=== PATIENT | female | born 1930 | race Caucasian/White ===

== ENCOUNTER 2017-08-19 13:18 | Inpatient (IN) | payer MEDICARE, MEDICAID ==
[~2017-08-19] VITALS: Ht 157.5 cm; Wt 58.5 kg
[~2017-08-19 13:18] MED LIST: AMLO5TAB88 PO; AZIT250T PO; LORA0.5T2 PO; LOVA40TA73 PO; TRAM50TA3 PO; WARF2TAB57
[2017-08-19] MEDS ORDERED: FUROSEMIDE 40MG/4ML VIAL IV STA (14:49)
[2017-08-19] MEDS ORDERED: ASPIRIN 81MG TABLET PO STA (14:49)
[2017-08-19] MEDS ORDERED: IPRATROPIUM/ALBUTEROL 0.5-3(2.5)MG/3ML NEB HHN ONE (15:00)
[2017-08-19 15:36] LABS: BASOPHILS % 0.5 % (0.0-2.0); EOSINOPHILS % 2.7 % (0.0-5.0); HEMATOCRIT. 45.1 % (36.0-48.0); HEMOGLOBIN. 15.2 g/dL (12.0-16.0); LYMPHOCYTES % 19.7 % (20.0-50.0); MEAN CORPUSCULAR HEMOGLOBIN 31.1 pg (28.0-32.0); MEAN PLATELET VOLUME 8.8 fl (7.4-10.4); MONOCYTES % 9.9 % (2.0-8.0); NEUTROPHILS % 67.2 % (40.0-76.0); PLATELET 228 x1000/uL (130-400); RED BLOOD CELL COUNT 4.91 mill/uL (4.2-5.4); RED CELL DISTRIBUTION WIDTH 13.7 % (11.6-14.6)
[2017-08-19 15:40] LABS: CLARITY URINE CLEAR (CLEAR); COLOR URINE YELLOW (YELLOW); GLUCOSE URINE NEGATIVE (NEGATIVE); KETONES URINE NEGATIVE (NEGATIVE); LEUKOCYTE ESTERASE URINE TRACE (NEGATIVE); NITRITE URINE NEGATIVE (NEGATIVE); OCCULT BLOOD URINE TRACE (NEGATIVE); PROTEIN URINE NEGATIVE (NEGATIVE); SPECIFIC GRAVITY URINE 1.026 (1.005-1.030); UROBILINOGEN URINE 0.2 E.U./dL (0.2-1.0)
[2017-08-19 15:44] LABS: CHLORIDE 101 mEq/L (98-107)
[2017-08-19 15:45] LABS: CARBON DIOXIDE 32 mEq/L (21-32)
[2017-08-19 15:47] LABS: D-DIMER 0.51 mg/L FEU (<0.50); INR 1.7; PARTIAL THROMBOPLASTIN TIME 26.5 sec (23.4-31.0); PROTHROMBIN TIME 17.9 sec (9.4-11.6)
[2017-08-19 15:51] LABS: CREATINE KINASE 125 IU/L (26-192)
[2017-08-19 15:53] LABS: TROPONIN I < 0.02 ng/mL (0.00-0.04)
[2017-08-19] MEDS ORDERED: LEVOFLOXACIN 750MG PREMIX 150 ML IV ONE (16:00)
[2017-08-19 22:50] VITALS: BP 110/67
[2017-08-20] MEDS ORDERED: IPRATROPIUM/ALBUTEROL 0.5-3(2.5)MG/3ML NEB HHN PRN (00:15)
[2017-08-20] MEDS ORDERED: TRAMADOL 50MG TABLET PO PRN (00:15)
[2017-08-20 00:17] VITALS: BP 120/60
[2017-08-20 04:00] VITALS: BP 148/78
[2017-08-20 07:49] VITALS: BP 155/72
[2017-08-20 08:05] LABS: HEMATOCRIT 45.1 % (36.0-48.0); HEMOGLOBIN 15.6 g/dL (12.0-16.0); MEAN CORPUSCULAR HEMOGLOBIN 31.7 pg (28.0-32.0); PLATELET 221 x1000/uL (130-400); RED CELL DISTRIBUTION WIDTH 13.9 % (11.6-14.6)
[2017-08-20 08:14] LABS: CARBON DIOXIDE 32 mEq/L (21-32); CHLORIDE 98 mEq/L (98-107)
[2017-08-20] MEDS ORDERED: AMLODIPINE 5MG TABLET PO SCH (09:00)
[2017-08-20 09:18] LABS: INR 1.5
[2017-08-20] MEDS ORDERED: ATEN-42 PO (10:20)
[2017-08-20] MEDS ORDERED: MEMA10TA2 PO (10:20)
[2017-08-20] MEDS ORDERED: DIGOXIN 500MCG/2ML AMP IV NR (11:45)
[2017-08-20 12:00] VITALS: BP 122/74
[2017-08-20] MEDS: MEMANTINE HCL 10MG TABLET PO SCH ×2 (13:17→20:12)
[2017-08-20] MEDS: ATENOLOL 25MG TABLET PO SCH ×2 (13:17→20:13)
[2017-08-20] MEDS ORDERED: KCL 20MEQ/100ML PREMIX 100 ML IV NR (14:00)
[2017-08-20] MEDS ORDERED: DIGOXIN 500MCG/2ML AMP IV PRN (14:00)
[2017-08-20] MEDS: METHYLPREDNISOLONE SOD SUCC 125 MG/2 ML VIAL IV SCH ×2 (15:42→21:04)
[2017-08-20 16:45] VITALS: BP 148/60
[2017-08-20] MEDS: AZITHROMYCIN 500 MG in DEXT 5% WATER 250 ML IV SCH (17:41)
[2017-08-20] MEDS ORDERED: WARFARIN SODIUM 1MG TABLET PO SCH (18:00)
[2017-08-20] MEDS ORDERED: WARFARIN SODIUM 4MG TABLET PO NR ×2 (18:00)
[2017-08-20 20:00] VITALS: BP 138/71
[2017-08-20] MEDS: LORAZEPAM 0.5MG TABLET PO SCH (20:12)
[2017-08-21] VITALS: BP 145/71
[2017-08-21] MEDS: DILTIAZEM HCL 30MG TABLET PO SCH ×4 (00:25→17:37)
[2017-08-21 04:00] VITALS: BP 121/58
[2017-08-21] MEDS: METHYLPREDNISOLONE SOD SUCC 125 MG/2 ML VIAL IV SCH ×3 (05:08→21:21)
[2017-08-21 07:44] LABS: INR 1.4; PROTHROMBIN TIME 14.7 sec (9.4-11.6)
[2017-08-21 07:54] LABS: BASOPHILS % 0.1 % (0.0-2.0); HEMATOCRIT. 47.7 % (36.0-48.0); HEMOGLOBIN. 16.2 g/dL (12.0-16.0); LYMPHOCYTES % 14.7 % (20.0-50.0); MEAN CORPUSCULAR HEMOGLOBIN 31.2 pg (28.0-32.0); MEAN PLATELET VOLUME 9.6 fl (7.4-10.4); MONOCYTES % 1.7 % (2.0-8.0); NEUTROPHILS % 83.5 % (40.0-76.0); PLATELET 238 x1000/uL (130-400); RED BLOOD CELL COUNT 5.19 mill/uL (4.2-5.4); RED CELL DISTRIBUTION WIDTH 13.6 % (11.6-14.6)
[2017-08-21 08:00] VITALS: BP 119/59
[2017-08-21 08:07] LABS: CARBON DIOXIDE 31 mEq/L (21-32); CHLORIDE 99 mEq/L (98-107)
[2017-08-21] MEDS: MEMANTINE HCL 10MG TABLET PO SCH ×2 (09:25→21:21)
[2017-08-21 12:00] VITALS: BP 111/47
[2017-08-21 16:00] VITALS: BP 122/57
[2017-08-21] MEDS: AZITHROMYCIN 500 MG in DEXT 5% WATER 250 ML IV SCH (17:36)
[2017-08-21] MEDS ORDERED: WARFARIN SODIUM 3MG TABLET PO SCH (18:00)
[2017-08-21 20:00] VITALS: BP 117/48
[2017-08-21] MEDS: LORAZEPAM 0.5MG TABLET PO SCH (21:21)
[2017-08-22] VITALS: BP 142/61
[2017-08-22] MEDS: DILTIAZEM HCL 30MG TABLET PO SCH ×3 (00:41→11:53)
[2017-08-22 04:00] VITALS: BP 134/52
[2017-08-22] MEDS: METHYLPREDNISOLONE SOD SUCC 125 MG/2 ML VIAL IV SCH ×2 (05:01→14:07)
[2017-08-22 06:37] LABS: BASOPHILS % 0.1 % (0.0-2.0); HEMATOCRIT. 42.7 % (36.0-48.0); HEMOGLOBIN. 14.6 g/dL (12.0-16.0); LYMPHOCYTES % 8.4 % (20.0-50.0); MEAN CORPUSCULAR HEMOGLOBIN 31.2 pg (28.0-32.0); MEAN CORPUSCULAR VOLUME 91.6 fL (81.0-99.0); MEAN PLATELET VOLUME 9.7 fl (7.4-10.4); MONOCYTES % 1.7 % (2.0-8.0); NEUTROPHILS % 89.8 % (40.0-76.0); PLATELET 237 x1000/uL (130-400); RED BLOOD CELL COUNT 4.66 mill/uL (4.2-5.4); RED CELL DISTRIBUTION WIDTH 13.6 % (11.6-14.6)
[2017-08-22 08:00] VITALS: BP 131/48
[2017-08-22 08:06] LABS: INR 2.9; PROTHROMBIN TIME 30.4 sec (9.4-11.6)
[2017-08-22 08:56] LABS: CARBON DIOXIDE 28 mEq/L (21-32); CHLORIDE 98 mEq/L (98-107)
[2017-08-22] MEDS: MEMANTINE HCL 10MG TABLET PO SCH (09:35)
[2017-08-22 12:00] VITALS: BP 140/58
[2017-08-22 15:06] VITALS: BP 140/65
[2017-08-24 19:12] LABS: OVA & PARASITE EXAM Final report (.)
== END 2017-08-22 18:10 | disposition home or self-care (01) | DRG 202 ==
LOC: ER 15:54 → OBSVTOIN 16:54 → INTOOBSV 16:54 → 6WST 16:54 → EDBEDREQ 18:46 → ENRESERV 19:19
PROVIDERS: ADMIT Internal Medicine; ATTEND Internal Medicine
DX: J20.9 Acute bronchitis, unspecified (principal); I48.1 Persistent atrial fibrillation; I07.1 Rheumatic tricuspid insufficiency; I11.0 Hypertensive heart disease with heart failure; I50.9 Heart failure, unspecified; I48.92 Unspecified atrial flutter; K52.9 Noninfective gastroenteritis and colitis, unspecified; R59.1 Generalized enlarged lymph nodes; G30.9 Alzheimer's disease, unspecified; F02.80 Dementia in other diseases classified elsewhere, unspecified severity, without behavioral disturbance, psychotic disturbance, mood disturbance, and anxiety; E87.6 Hypokalemia; I35.1 Nonrheumatic aortic (valve) insufficiency; I48.2 Chronic atrial fibrillation; Z79.01 Long term (current) use of anticoagulants; Z82.49 Family history of ischemic heart disease and other diseases of the circulatory system; Z86.73 Personal history of transient ischemic attack (TIA), and cerebral infarction without residual deficits; Z90.710 Acquired absence of both cervix and uterus; Z79.899 Other long term (current) drug therapy; Z80.9 Family history of malignant neoplasm, unspecified
CPT/HCPCS: 36415; 71010; 80048; 80053; 81001; 82270; 82550; 83605; 83615; 83690; 83735; 83880; 84443; 84484; 85025; 85027; 85379; 85610; 85730; 87015; 87040; 87045; 87177; 87186; 87209; 87427; 89055; 93005; 93306; 94640; 96365; 96366; 96375; 97162; 99285; J0456; J1160; J1940; J1956; J2930; J3480; J7030; J7060; J7620

== ENCOUNTER 2019-01-04 17:43 | Inpatient (IN) | payer MEDICARE, MEDICAID ==
[~2019-01-04] VITALS: Ht 162.6 cm; Wt 61.7 kg
[~2019-01-04 17:43] MED LIST changes: -AMLO5TAB88 PO; +MEMA10TA2 PO
[2019-01-04] MEDS ORDERED: ONDANSETRON HCL 4MG/2ML INJ IV STA (18:34)
[2019-01-04] MEDS ORDERED: SODIUM CHLORIDE 0.9% 1,000 ML IV ONE (18:34)
[2019-01-04] MEDS ORDERED: MORPHINE SULFATE 4 MG/ML CPJ (NOT FOR IM USE) IV STA (18:34)
[2019-01-04 19:17] LABS: BASOPHILS % 0.4 % (0.0-2.0); EOSINOPHILS % 0.3 % (0.0-5.0); HEMATOCRIT. 39.5 % (36.0-48.0); LYMPHOCYTES % 14.9 % (20.0-50.0); MEAN CORPUSCULAR HEMOGLOBIN 31.1 pg (28.0-32.0); MEAN CORPUSCULAR VOLUME 94.1 fL (81.0-99.0); MEAN PLATELET VOLUME 8.6 fl (7.4-10.4); MONOCYTES % 11.9 % (2.0-8.0); NEUTROPHILS % 72.5 % (40.0-76.0); PLATELET 198 x1000/uL (130-400); RED BLOOD CELL COUNT 4.19 mill/uL (4.2-5.4); RED CELL DISTRIBUTION WIDTH 15.7 % (11.6-14.6)
[2019-01-04 19:27] LABS: PROTHROMBIN TIME 19.6 sec (9.1-11.1)
[2019-01-04 19:32] LABS: CHLORIDE 102 mEq/L (98-107)
[2019-01-04 21:22] LABS: CREATINE KINASE 92 IU/L (26-192)
[2019-01-04 21:22] LABS: CLARITY URINE CLEAR (CLEAR); COLOR URINE YELLOW (YELLOW); KETONES URINE NEGATIVE (NEGATIVE); LEUKOCYTE ESTERASE URINE 2+ (NEGATIVE); NITRITE URINE NEGATIVE (NEGATIVE); OCCULT BLOOD URINE NEGATIVE (NEGATIVE); PROTEIN URINE NEGATIVE (NEGATIVE); SPECIFIC GRAVITY URINE 1.019 (1.005-1.030); UROBILINOGEN URINE 0.2 E.U./dL (0.2-1.0)
[2019-01-04] MEDS ORDERED: CEFTRIAXONE 1 G PREMIX 50 ML IV ONE (22:00)
[2019-01-05 04:22] VITALS: BP 127/68
[2019-01-05] MEDS ORDERED: ACETAMINOPHEN 650MG/20.3ML UDC GT PRN (06:00)
[2019-01-05] MEDS ORDERED: DOCUSATE SODIUM 100MG CAPSULE PO PRN (06:00)
[2019-01-05] MEDS: TRAMADOL 50MG TABLET PO PRN ×2 (06:33→14:45)
[2019-01-05] MEDS: SODIUM CHLORIDE 0.9% INJ 3ML FLUSH IVF SCH ×3 (06:38→21:45)
[2019-01-05] MEDS: MEMANTINE HCL 10MG TABLET PO SCH ×2 (08:16→20:49)
[2019-01-05] MEDS ORDERED: MEMANTINE HCL 10MG TABLET PO SCH (09:00)
[2019-01-05] MEDS ORDERED: DILT240C91 MT (11:20)
[2019-01-05] MEDS ORDERED: DILTIAZEM HCL 30MG TABLET PO PRN (11:30)
[2019-01-05 12:00] VITALS: BP 119/62
[2019-01-05 16:00] VITALS: BP 120/74
[2019-01-05] MEDS: DILTIAZEM HCL 30MG TABLET PO SCH ×2 (16:58→20:51)
[2019-01-05] MEDS ORDERED: WARFARIN SODIUM 3MG TABLET PO SCH (18:00)
[2019-01-05] MEDS: LORAZEPAM 0.5MG TABLET PO PRN (18:09)
[2019-01-05 20:00] VITALS: BP_SYST 140; BP_SYST 158; BP_DIAS 82; BP_DIAS 94
[2019-01-05] MEDS: ATORVASTATIN CALCIUM 20MG TABLET PO SCH (20:49)
[2019-01-05] MEDS ORDERED: LORAZEPAM 0.5MG TABLET PO PRN (21:00)
[2019-01-05] MEDS: VERAPAMIL HCL 2.5 MG/1 ML 2ML VIAL IV PRN (22:31)
[2019-01-06] VITALS (9 sets, daily range): BP systolic 115–160; BP diastolic 58–87
[2019-01-06] MEDS: RISPERIDONE 0.5MG TABLET PO SCH ×2 (00:26→08:15)
[2019-01-06] MEDS: LORAZEPAM 0.5MG TABLET PO PRN ×2 (03:10→17:00)
[2019-01-06] MEDS: VERAPAMIL HCL 2.5 MG/1 ML 2ML VIAL IV PRN (03:11)
[2019-01-06] MEDS: SODIUM CHLORIDE 0.9% INJ 3ML FLUSH IVF SCH ×3 (06:13→22:49)
[2019-01-06] MEDS: DILTIAZEM HCL 30MG TABLET PO SCH ×2 (06:13→12:03)
[2019-01-06 06:16] LABS: INR 2.6; PROTHROMBIN TIME 25.9 sec (9.1-11.1)
[2019-01-06] MEDS: MEMANTINE HCL 10MG TABLET PO SCH ×2 (08:15→22:49)
[2019-01-06] MEDS: LEVOFLOXACIN 250MG TABLET PO SCH (12:03)
[2019-01-06] MEDS ORDERED: DILTIAZEM HCL 5MG/ML 5ML VIAL IV NR (12:45)
[2019-01-06 13:44] LABS: HEMATOCRIT 40.8 % (36.0-48.0); HEMOGLOBIN 13.5 g/dL (12.0-16.0); MEAN CORPUSCULAR HEMOGLOBIN 31.7 pg (28.0-32.0); MEAN CORPUSCULAR VOLUME 95.7 fL (81.0-99.0); PLATELET 182 x1000/uL (130-400); RED BLOOD CELL COUNT 4.27 mill/uL (4.2-5.4); RED CELL DISTRIBUTION WIDTH 16.3 % (11.6-14.6)
[2019-01-06 14:03] LABS: BG BASE EXCESS 5.9 mmol/L (-2.0-2.0); BG CARBOXYHEMOGLOBIN 1.1 % (0.5-1.5); BG DEOXYHEMOGLOBIN 6.2 % (0.0-5.0); BG FRACTION INSPIRED OXYGEN 28; BG HCO3 ACT 31.1 mmol/L (22.0-26.0); BG METHEMOGLOBIN 0.2 % (0.0-1.5); BG OXYGEN SATURATION 93.7 % (92.0-98.5); BG OXYHEMOGLOBIN 92.5 % (94.0-97.0); BG PCO2 47.5 mmHg (35.0-45.0); BG PH 7.434 (7.350-7.450); BG PO2 64.4 mmHg (75.0-100.0); BG SAMPLE SITE RIGHT BRACHIAL; BG TOTAL HEMOGLOBIN 12.5 g/dL (12.0-18.0); BG VENT MODE NASAL CANNULA
[2019-01-06] MEDS: DILTIAZEM HCL 125 MG in DEXT 5% WATER 100 ML IV SCH (14:13)
[2019-01-06 14:19] LABS: CHLORIDE 104 mEq/L (98-107)
[2019-01-06 14:20] LABS: LDL CHOLESTEROL 80 mg/dL (5-100)
[2019-01-06 14:21] LABS: HDL CHOLESTEROL 46 mg/dL (40-59)
[2019-01-06 14:24] LABS: T4 FREE 1.21 ng/dL (0.76-1.46)
[2019-01-06] MEDS: TRAMADOL 50MG TABLET PO PRN (14:45)
[2019-01-06] MEDS ORDERED: WARFARIN SODIUM 1MG TABLET PO NR (18:00)
[2019-01-06] MEDS ORDERED: DILTIAZEM HCL 5MG/ML 5ML VIAL IV PRN (18:30)
[2019-01-06] MEDS: ATORVASTATIN CALCIUM 20MG TABLET PO SCH (22:49)
[2019-01-07] VITALS (16 sets, daily range): BP systolic 118–187; BP diastolic 58–101
[2019-01-07] MEDS: LORAZEPAM 0.5MG TABLET PO PRN ×3 (01:06→20:16)
[2019-01-07] MEDS: VERAPAMIL HCL 2.5 MG/1 ML 2ML VIAL IV PRN (01:57)
[2019-01-07] MEDS: SODIUM CHLORIDE 0.9% INJ 3ML FLUSH IVF SCH ×3 (06:04→21:07)
[2019-01-07 06:39] LABS: INR 2.4; PROTHROMBIN TIME 23.4 sec (9.1-11.1)
[2019-01-07 07:11] LABS: BASOPHILS % 0.4 % (0.0-2.0); EOSINOPHILS % 0.8 % (0.0-5.0); HEMOGLOBIN. 11.6 g/dL (12.0-16.0); LYMPHOCYTES % 7.4 % (20.0-50.0); MEAN CORPUSCULAR HEMOGLOBIN 31.2 pg (28.0-32.0); MEAN CORPUSCULAR VOLUME 94.4 fL (81.0-99.0); MONOCYTES % 11.7 % (2.0-8.0); NEUTROPHILS % 79.7 % (40.0-76.0); PLATELET 172 x1000/uL (130-400); RED BLOOD CELL COUNT 3.71 mill/uL (4.2-5.4); RED CELL DISTRIBUTION WIDTH 15.5 % (11.6-14.6)
[2019-01-07] MEDS: MEMANTINE HCL 10MG TABLET PO SCH ×2 (08:36→20:15)
[2019-01-07] MEDS: RISPERIDONE 0.5MG TABLET PO SCH (08:36)
[2019-01-07] MEDS: DILTIAZEM HCL 125 MG in DEXT 5% WATER 100 ML IV SCH ×2 (08:37→20:17)
[2019-01-07 09:11] LABS: CHLORIDE 106 mEq/L (98-107)
[2019-01-07] MEDS: LEVOFLOXACIN 250MG TABLET PO SCH (11:28)
[2019-01-07] MEDS ORDERED: FUROSEMIDE 40MG/4ML VIAL IVP NR (15:15)
[2019-01-07] MEDS ORDERED: WARFARIN SODIUM 2MG TABLET PO NR (18:00)
[2019-01-07] MEDS: DILTIAZEM HCL 30MG TABLET PO SCH ×2 (18:17→23:57)
[2019-01-07] MEDS: ATORVASTATIN CALCIUM 20MG TABLET PO SCH (20:15)
[2019-01-08] VITALS (9 sets, daily range): BP systolic 123–180; BP diastolic 59–111
[2019-01-08] MEDS: LORAZEPAM 0.5MG TABLET PO PRN (03:23)
[2019-01-08] MEDS: TRAMADOL 50MG TABLET PO PRN ×2 (03:53→14:47)
[2019-01-08] MEDS: SODIUM CHLORIDE 0.9% INJ 3ML FLUSH IVF SCH ×2 (05:30→12:41)
[2019-01-08] MEDS: DILTIAZEM HCL 30MG TABLET PO SCH (05:39)
[2019-01-08 06:05] LABS: INR 2.1; PROTHROMBIN TIME 20.5 sec (9.1-11.1)
[2019-01-08 06:06] LABS: HEMATOCRIT. 38.4 % (36.0-48.0); MEAN CORPUSCULAR HEMOGLOBIN 31.8 pg (28.0-32.0); MEAN CORPUSCULAR VOLUME 93.8 fL (81.0-99.0); PLATELET 210 x1000/uL (130-400); RED CELL DISTRIBUTION WIDTH 15.5 % (11.6-14.6)
[2019-01-08] MEDS: DILTIAZEM HCL 125 MG in DEXT 5% WATER 100 ML IV SCH ×2 (06:08→10:29)
[2019-01-08 06:37] LABS: CHLORIDE 101 mEq/L (98-107)
[2019-01-08] MEDS: RISPERIDONE 0.5MG TABLET PO SCH (08:34)
[2019-01-08] MEDS: MEMANTINE HCL 10MG TABLET PO SCH (08:34)
[2019-01-08 11:02] LABS: ATYPICAL LYMPHOCYTES 1
[2019-01-08 11:03] LABS: PLATELET ESTIMATE NORMAL
[2019-01-08] MEDS: LEVOFLOXACIN 250MG TABLET PO SCH (11:16)
[2019-01-08] MEDS ORDERED: DIGOXIN 500MCG/2ML AMP IV NR (12:30)
[2019-01-08] MEDS ORDERED: DILTIAZEM HCL 125 MG in DEXT 5% WATER 100 ML IV SCH (13:00)
[2019-01-08] MEDS ORDERED: DILTIAZEM HCL 60MG TABLET PO SCH (14:00)
[2019-01-08] MEDS ORDERED: DIGOXIN 500MCG/2ML AMP IV PRN (15:00)
[2019-01-08] MEDS ORDERED: WARFARIN SODIUM 2MG TABLET PO NR (18:00)
[2019-01-08] MEDS ORDERED: DIGOXIN 500MCG/2ML AMP IV SCH (18:00)
== END 2019-01-08 18:30 | disposition hospice, home (50) | DRG 308 ==
LOC: ER 18:11 → 7WST 21:02 → ENRESERV 01-05 03:05 → 3WST 01-06 13:30
PROVIDERS: ADMIT Internal Medicine; ATTEND Internal Medicine
DX: I48.2 Chronic atrial fibrillation (principal); I50.43 Acute on chronic combined systolic (congestive) and diastolic (congestive) heart failure; N39.0 Urinary tract infection, site not specified; D68.9 Coagulation defect, unspecified; C85.90 Non-Hodgkin lymphoma, unspecified, unspecified site; D68.59 Other primary thrombophilia; E46 Unspecified protein-calorie malnutrition; G90.8 Other disorders of autonomic nervous system; E78.5 Hyperlipidemia, unspecified; G30.9 Alzheimer's disease, unspecified; F02.80 Dementia in other diseases classified elsewhere, unspecified severity, without behavioral disturbance, psychotic disturbance, mood disturbance, and anxiety; I11.0 Hypertensive heart disease with heart failure; R29.6 Repeated falls; R62.7 Adult failure to thrive; Z66 Do not resuscitate; R59.9 Enlarged lymph nodes, unspecified; W01.0XXA Fall on same level from slipping, tripping and stumbling without subsequent striking against object, initial encounter; Z78.1 Physical restraint status; Z79.01 Long term (current) use of anticoagulants; Z86.73 Personal history of transient ischemic attack (TIA), and cerebral infarction without residual deficits; Y93.89 Activity, other specified; Y92.091 Bathroom in other non-institutional residence as the place of occurrence of the external cause; Y99.8 Other external cause status; Z68.23 Body mass index [BMI] 23.0-23.9, adult
CPT/HCPCS: 36415; 36600; 71045; 72170; 74176; 78582; 80048; 80061; 82375; 82550; 82553; 82805; 83605; 83735; 84439; 84443; 84484; 85027; 85379; 93005; 93306; 93970; 96361; 96365; 96375; 97162; 99285; A6261; A9558; J0696; J1160; J1940; J2270; J2405; J3490; J7030; J7050; J7060